=== PATIENT | male | born 1930 | race Caucasian/White ===

== ENCOUNTER 2018-11-13 11:19 | Inpatient (IN) | payer MEDICARE, OTHER ==
[~2018-11-13] VITALS: Ht 188 cm; Wt 98.0 kg
[~2018-11-13 11:19] MED LIST: ASPIRIN325 PO; AUGMENTIN 875875 M1 PO; CYMBALTA30 MG PO; DILAUDID2 M1 PO; FENTANYL PA50 MCG/HR TP; HYTRIN 5 M5 MG/1 CA1 PO; LEVAQUIN 750 M750 MG PO; LOPRESSOR25 PO; LYRICA PO; MEVACOR 20 MG T20 MG PO; NEURONTIN 300300 M1 PO; NEXIUM 40 MG CA40 M1 PO; NORCO 10-325 T1 EACH PO; PREDNISONE 20 M20 M1 PO; RANEXA1000 MG PO; ZOFRAN ODT4 MG PO
[2018-11-13 11:20] VITALS: BP 113/59
[2018-11-13] MEDS ORDERED: FENTANYL PATCH75 MCG TRANSDERM (11:30)
[2018-11-13 11:58] LABS: ANION GAP 8 mmol/L (7-16); BUN 17 mg/dL (7-18); CHLORIDE 102 mmol/L (98-107); CO2 28 mmol/L (21-32); CREATININE 1.4 mg/dL (0.6-1.3); GLUCOSE 125 mg/dL (70-99); POTASSIUM 3.9 mmol/L (3.5-5.1); SODIUM 138 mmol/L (136-145)
[2018-11-13 12:02] LABS: ABSOLUTE BASOPHILS 0.1 thou/uL (0.0-0.2); ABSOLUTE EOSINOPHILS 0.1 thou/uL (0.0-0.7); ABSOLUTE LYMPHOCYTES 1.8 thou/uL (0.8-5.3); ABSOLUTE MONOCYTES 0.6 thou/uL (0.0-1.2); ABSOLUTE NEUTROPHILS 6.1 thou/uL (1.6-8.1); BASOPHILS 1.4 %; EOSINOPHILS 0.7 %; HEMATOCRIT 45.6 % (42.0-52.0); HEMOGLOBIN 15.1 gm/dL (14.0-18.0); LYMPHOCYTES 20.4 %; MCH 31.2 pg (26.0-34.0); MCV 94.3 fL (80.0-100.0); MPV 7.8 fl. (7.2-11.1); NUCLEATED RBCS 0 /100WBC; PLATELET COUNT* 249 thou/uL (150-400); POLYS 70.5 %; RBC 4.84 mil/uL (4.50-6.00); RDW-CV 16.6 % (10.5-14.5); WBC 8.6 thou/uL (4.0-11.0)
[2018-11-13 12:04] LABS: PROTIME 10.3 Seconds (9.20-11.50)
[2018-11-13 12:12] LABS: ALBUMIN 3.4 g/dL (3.4-5.0); ALKALINE PHOSPHATASE 48 U/L (46-116); LIPASE 127 U/L (73-393); NT-PRO BRAIN NAT PEPTIDE 804 pg/mL (<300); SGOT 19 U/L (15-37); SGPT 35 U/L (30-65); TOTAL BILIRUBIN 0.5 mg/dL (<0.1-1.0); TOTAL PROTEIN 6.6 g/dL (6.4-8.2); TROPONIN-I LEVEL <0.06 ng/mL (<0.06)
[2018-11-13 14:30] VITALS: BP 158/66
[2018-11-13 14:45] VITALS: BP 141/71
[2018-11-13] MEDS ORDERED: PROSCAR 5MG TABL5 MG PO (15:41)
[2018-11-13] MEDS ORDERED: ASPIR 8181 MG PO (15:42)
[2018-11-13] MEDS ORDERED: VICODIN HP 10-1 EAC1 PO (15:42)
[2018-11-13] MEDS ORDERED: FLOMAX0.4 MG PO (15:44)
[2018-11-13 16:00] VITALS: BP 119/65
--- NOTE | 2018-11-13 16:23 | 2DMMODE ---
[place] [address] 2 D/M-MODE ECHOCARDIOGRAM Name: ARI SEN Room: [address] IN [facility]#: [id number] Admission: 11/13/18 Attend Phys: Robbin Adames, Discharge: Date of : 34 Date of Service: 11/13/18 1622 Report #: [id number] THIS REPORT FOR: //name// ADDENDUM APPROVED REPORT Study performed: 11/13/2018 13:47:11 EXAM: Comprehensive 2D, Doppler, and color-flow Echocardiogram Patient Location: In-Patient Room #: ER Status: routine BSA: 2.22 HR: 57 bpm BP: 180/66 mmHg Rhythm: NSR Other Information Study Quality: Good Indications Chest Pain 2D Dimensions IVSd: 13.72 (7-11mm) LVOT Diam: 22.99 (18-24mm) LVDd: 49.94 mm PWd: 10.59 (7-11mm) Ascending Ao: 46.68 (22-36mm) LVDs: 33.32 (25-40mm) Aortic Root: 36.67 mm Volumes Left Atrial Volume (Systole) LA ESV Index: 26.80 mL/m2 Aortic Valve AoV Peak Jason.: 1.53 m/s AO Peak Gr.: 9.31 mmHg LVOT Max P.29 mmHg AO Mean Gr.: 4.73 mmHg LVOT Mean P.81 mmHg LVOT Max V: 0.91 m/s AO V2 VTI: 34.59 cm LVOT Mean V: 0.62 m/s MAURILIO (VTI): 2.34 cm2 LVOT V1 VTI: 19.48 cm AI Eaton: 1.42 m/s2 AI PHT: 698.92 ms TDI Medial E' Jason.: 0.05 m/[place] [address] 2 D/M-MODE ECHOCARDIOGRAM Name: YAHAIRAGenaroARI W Room: [address] IN [facility]#: [id number] Admission: 11/13/18 Attend Phys: Robbin Adames, Discharge: Date of : 32 Date of Service: 11/13/18 1622 Report #: [id number] Lateral E' Jason.: 0.08 m/s Pulmonary Valve PV Peak Jason.: 0.97 m/s PV Peak Gr.: 3.75 mmHg Tricuspid Valve RAP Estimate: 5.00 mmHg TR Peak Gr.: 38.75 mmHg RVSP: 43.00 mmHg PA Pressure: 43.00 mmHg Left Ventricle The left ventricle is normal size. There is normal LV segmental wall motion. Mild septal hypertrophy is present. Left ventricular systolic function is normal. LVEF is 55-60%. Grade I - abnormal relaxation pattern. Right Ventricle The right ventricle is normal size. The right ventricular systolic function is normal. Atria Left atrium is mildly dilated. The right atrium size is normal. Aortic Valve Mild aortic valve sclerosis. Moderate aortic regurgitation. There is no aortic valvular stenosis. Mitral Valve The mitral valve is normal in structure. Trace mitral regurgitation. No evidence of mitral valve stenosis. Tricuspid Valve The tricuspid valve is normal in structure. Mild tricuspid regurgitation. Moderate pulmonary hypertension. Pulmonic Valve The pulmonary valve is normal in structure. There is no pulmonic valvular regurgitation. Great Vessels Aortic root is moderately dilated. (4.67 cm.) IVC is not well visualized. Pericardium There is no [place] [address] 2 D/M-MODE ECHOCARDIOGRAM Name: ARI SEN Room: [address] IN [facility]#: [id number] Admission: 11/13/18 Attend Phys: Robbin Adames, Discharge: Date of : 32 Date of Service: 11/13/18 1622 Report #: [id number] <Conclusion> The left ventricle is normal size. Mild septal hypertrophy is present. Left ventricular systolic function is normal. LVEF is 55-60%. Grade I - abnormal relaxation pattern. Left atrium is mildly dilated. Moderate aortic regurgitation. Mild aortic valve sclerosis. There is no aortic valvular stenosis. Trace mitral regurgitation. Mild tricuspid regurgitation. Moderate pulmonary hypertension. Aortic root is moderately dilated. (4.67 cm.) <ELECTRONICALLY SIGNED> By: Hari Antunez MD, FACC 11/13/181621 21 21 Hari Antunez MD, FACC /INF
--- NOTE | 2018-11-13 16:32 | EKG ---
[place] [address] ELECTROCARDIOGRAM REPORT Name: ARI SEN Room: [address] ADM IN .R.#: [id number] Admission: 11/13/18 Attend Phys: Robbin Adames MD Discharge: Date of : 32 Report #: [id number] THIS REPORT FOR: //name// [facility] ED Test Date: 2018-11-13 Test Time: 11:23:46 Pat Name: ARI SEN Department: Room: [facility] Gender: M Lace Machine Operator: KATRIN : 1930 Requested By: Maia Ramon Order Number: [id number] MD: Hari Antunez Measurements Intervals [place] Rate: 65 P: 47 MT: 193 QRS: -18 QRSD: 103 T: 38 QT: 375 QTc: 390 Interpretive Statements Sinus rhythm Supraventricular bigeminy Borderline left axis deviation Low voltage, precordial leads Abnormal R-wave progression, late transition Borderline T wave abnormalities Compared to ECG 12/28/2015 15:22:46 Atrial premature complex(es) now present Low QRS voltage now present T-wave abnormality now present Sinus bradycardia no longer present Electronically Signed On 11-13-2018 16:32:38 SOLUTION MIXER by Hari Antunez [email or web address] <ELECTRONICALLY SIGNED> By: Hari Antunez MD, [facility] 11/13/18 1632 1123 1123 Hari Antunez MD, [facility] /EPI
[2018-11-13 20:00] VITALS: BP 122/62
[2018-11-14] VITALS (18 sets, daily range): BP systolic 108–158; BP diastolic 36–80
[2018-11-14 05:11] LABS: HEMATOCRIT 42.4 % (42.0-52.0); MCH 31.2 pg (26.0-34.0); MCV 94.5 fL (80.0-100.0); MPV 7.7 fl. (7.2-11.1); RBC 4.48 mil/uL (4.50-6.00); RDW-CV 16.8 % (10.5-14.5); WBC 6.5 thou/uL (4.0-11.0)
[2018-11-14 05:26] LABS: ANION GAP 5 mmol/L (7-16); BUN 13 mg/dL (7-18); CALCIUM 8.6 mg/dL (8.5-10.1); CHLORIDE 105 mmol/L (98-107); CHOLESTEROL 197 mg/dL (<200); CO2 31 mmol/L (21-32); CREATININE 1.1 mg/dL (0.6-1.3); GLUCOSE 95 mg/dL (70-99); HDL CHOLESTEROL 51 mg/dL (>40); LDL CHOLESTEROL 134 mg/dL (<100); MAGNESIUM 2.2 mg/dL (1.8-2.4); POTASSIUM 4.5 mmol/L (3.5-5.1); SODIUM 141 mmol/L (136-145); TC:HDL 3.9 Ratio (Not establshd); TRIGLYCERIDE 63 mg/dL (<150); VLDL 13 mg/dL (<40)
[2018-11-14 05:33] LABS: SERUM ASSESSMENT Clear
--- NOTE | 2018-11-14 15:37 | EKG ---
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: : 1930 Requested By: Mathieu Cool Order Number: [id number] Reading MD: Mathieu Cool Measurements Intervals [place] Rate: 78 P: 52 VT: 206 QRS: -37 QRSD: 100 T: 53 QT: 362 QTc: 413 Interpretive Statements Sinus rhythm Supraventricular bigeminy Left axis deviation Low voltage, precordial leads Abnormal R-wave progression, late transition Compared to ECG 11/13/2018 11:23:46 T-wave abnormality no longer present Electronically Signed On 11-14-2018 15:37:31 SNOWBOARDING INSTRUCTOR by Mathieu Cool [email or web address] <ELECTRONICALLY SIGNED> By: Mathieu Cool MD, FAC 11/14/18 1537 1345 1345 Mathieu Cool MD, [facility] /EPI
--- NOTE | 2018-11-14 16:37 | CARD ---
[facility] [address] [place] [address] CARDIAC CATH REPORT Name: ARI SEN Room: [address] IN [facility]#: [id number] Admission: 11/13/18 Attend Phys: Robbin Adames MD Discharge: Date of : 32 Report #: [id number] THIS REPORT FOR: //name// APPROVED REPORT Study performed: 11/14/2018 10:17:03 Patient Details Patient Status: In-Patient Room #: 201 The patient is a 88 year-old male Event Personnel Mathieu Cool Mine Analyst, Rosalina Bruce RN RN, Karen Gray RTR Scrub, Bertha Schmitz Monitor Procedures Performed Art Access - R radial artery , [facility] w[facility]o [facility] [id number] [facility] Left Heart Cath w/or w/o Coronaries [id number] [facility] [address] w/wo Plasty Single DIAG [id number] [address] w/wo Plasty Single LAD [id number] Indication Chest pain Risk Factors Dysplipidemia Previous Procedures/Diagnoses Previous PCI Admission/Lab Medications/Medications given during procedure Glycoprotein IllbIlla Inhibitors, Heparin Unfract. Procedure Narrative The patient was brought electively to the Cardiac Catheterization Laboratory and was prepped and draped in a sterile manner. The right wrist was infiltrated with 1% Lidocaine subcutaneous anesthesia. A Slender Glidesheath sheath was inserted into the right radial artery. Coronary angiography was performed using coronary diagnostic catheters. The right coronary system was accessed and visualized with a 6fr JR 4 catheter. The left coronary system was accessed and visualized with a 6fr JL 4 catheter. The left ventricle was accessed and visualized with a 6fr Pigtail catheter. Left ventricular/Aortic Valve gradient assessed via catheter pullback[place] [address] CARDIAC CATH REPORT Name: ARI SEN Room: [address]#: [id number] Admission: 11/13/18 Attend Phys: Robbin Adames MD Discharge: Date of : 32 Report #: [id number] was performed in ABRAMS projection. Closure device was deployed with a 6 Fr Vasc-Band Lng 27cm. The patient tolerated the procedure well and there were no complications associated with the procedure. There was no hematoma. Intraoperative Conscious Sedation Sedation start time: 11:05 Case end Time: 12:22 Fentanyl 100 mcg Versed 4 mg Fluoro Time: 15.2 minutes Dose: DAP 56733 cGycm2 2373.1 mGy Contrast Type and Amount: Omnipaque 460 ml Coronary Angiography The patient's coronary anatomy is right dominant. Diagnostic Cath Left Main 30% mid stenosis LAD stent noted that started in the proximal lad and extended beyond the first diagonal branch with no restenosis. 30% stenosis noted in mid lad and 90% stenosis of apical lad Diagonal 1 proximal stent noted with 80% mid restenosis Circumflex mid stent noted with 30% mid restenosis. L SHAUN 80% proximal stenosis noted Right Coronary 40% proximal and 30% mid stenosis noted Left Ventriculography The left ventricle is normal in size with normal contractility. The left ventricular ejection fraction is estimated to be 50-55%. Left ventricular wall motion abnormalities are not present. There is no mitral insufficiency. Hemodynamics The aortic pressure is 151/55 mmHg with a mean of mmHg. The left ventricular pressure is 169/20 mmHg with a mean of mmHg. The left ventricular end diastolic pressure is 24 mmHg. There was no gradient across the aortic valve upon pullback. Pullback from the left ventricle to the aorta revealed no gradient across the aortic valve. PCI Technique Lesion Anticoagulation was achieved with Heparin. bolus of IV aggrastat given Percutaneous coronary intervention was performed on the first diagnonal branch segment. The lesion [place] [address] CARDIAC CATH REPORT Name: ARI SEN Virgen Room: [address]#: [id number] Admission: 11/13/18 Attend Phys: Robbin Adames MD Discharge: Date of : 32 Report #: [id number] was 80% with EDMOND 3 flow. A 6FR XB 4.5 100CM Guide Catheter was used to engage the LCA ostium. A BMW 190cm Interventional Guidewire was used to cross the lesion. BALLOON DILATION A Balloon catheter Trek RX 2.5 X 8 was inserted and inflated up to 8.00atm for 16seconds. Repeat angiography revealed the following post-dilatation results: 50% stenosis. Additional Inflation: 8.00atm for 7seconds. Additional Inflation: 8.00atm for 5seconds. STENT DEPLOYMENT A drug-eluting stent [place] RX Stent 2.5X15mm was inserted and inflated up to 10.00atm for 7seconds. Repeat angiography revealed the following post-stent deployment results: 0% stenosis. Additional Inflation: 10.00atm for 10seconds. Final angiography reveals 0 % stenosis with EDMOND 3 flow. PCI Technique Lesion 2 Percutaneous Coronary Intervention was performed on the first left posterolateral branch segment. Percutaneous coronary intervention was performed on the first left posterolateral branch segment. The lesion stenosis prior to intervention was 80% with EDMOND 3 flow. A 6FR XB 4.5 100CM Guide Catheter was used to engage the lm ostium. A BMW 190cm Interventional Guidewire was used to cross the lesion. Balloon Dilation A Balloon catheter Trek RX 2.5 X 8 was inserted and inflated up to 14.00atm for 15seconds. Repeat angiography revealed the following post-dilatation results: 30% stenosis. Attempted using xb4.0 guide catheter but it offered minimal support, so changed to a xb4.5. Stent Deployment A drug-eluting stent [place] RX Stent 3.0X22mm was inserted and inflated up to 10.00atm for 14seconds. Repeat angiography revealed the following post-stent deployment results: 0% stenosis. Additional Inflation: 12.00atm for 13seconds. Final angiography reveals 0 % stenosis with EDMOND 3 flow. Conclusion 1. no significant restenosis of stents in the lad and mid circumflex 2. 80% restenosis of stent in the first diagonal branch and 80% [address] [address] CARDIAC CATH REPORT Name: ARI SEN Room: [address] IN M.R.#: [id number] Admission: 11/13/18 Attend Phys: Robbin Adames MD Discharge: Date of : 32 Report #: [id number] stenosis of posterolateral branch of the circumflex 3. normal LV function 4. successful placement of drug eluting stents in the diagonal artery and posterolateral branch Recommendations Cardiac Rehabilitation Referral Aggressive Medical Therapy Medications Administered Clopidogrel <ELECTRONICALLY SIGNED> By: Mathieu Cool MD, FACC 11/14/18 1637 1637 1637Mathieu Cool MD, [facility] /INF
[2018-11-15] VITALS: BP 144/68
[2018-11-15 04:00] VITALS: BP 160/63
[2018-11-15 08:00] VITALS: BP 157/81
[2018-11-15] MEDS ORDERED: PLAVIX 75 MG TA75 M1 PO (09:09)
[2018-11-15] MEDS ORDERED: LIPITOR 20 MG T20 M1 PO (09:09)
[2018-11-15] MEDS ORDERED: LOPRESSOR25 PO (09:09)
[2018-11-15 11:15] LABS: HEMATOCRIT 43.9 % (42.0-52.0); HEMOGLOBIN 14.5 gm/dL (14.0-18.0); MCV 93.8 fL (80.0-100.0); MPV 7.5 fl. (7.2-11.1); RBC 4.67 mil/uL (4.50-6.00); RDW-CV 16.8 % (10.5-14.5); WBC 7.7 thou/uL (4.0-11.0)
[2018-11-15 11:29] LABS: CREATININE 1.1 mg/dL (0.6-1.3); POTASSIUM 3.7 mmol/L (3.5-5.1)
[2018-11-15 11:55] LABS: TROPONIN-I LEVEL 1.11 ng/mL (<0.06)
[2018-11-15 12:15] VITALS: BP 154/61
--- NOTE | 2018-11-15 13:13 | EKG ---
[place] [address] ELECTROCARDIOGRAM REPORT Name: ARI SEN Room: [address] ADM IN .R.#: [id number] Admission: 11/13/18 Attend Phys: Robbin Adames MD Discharge: Date of : 32 Report #: [id number] THIS REPORT FOR: //name// [facility] Test Date: 2018-11-15 Test Time: 07:59:46 Pat Name: ARI SEN Department: Room: [address] Gender: M Inseamer: : 1930 Requested By: Mathieu Cool Order Number: [id number] Reading MD: Mathieu Cool Measurements Intervals [place] Rate: 79 P: 44 WI: 192 QRS: -10 QRSD: 104 T: 51 QT: 378 QTc: 434 Interpretive Statements Sinus rhythm Atrial premature complexes Abnormal R-wave progression, late transition Compared to ECG 11/14/2018 13:45:23 Left-axis deviation no longer present Electronically Signed On 11-15-2018 13:13:38 MARKETING RESEARCH COORDINATOR by Mathieu Cool [email or web address] <ELECTRONICALLY SIGNED> By: Mathieu Cool MD, [facility] 11/15/18 1313 0759 0759 Mathieu Cool MD, [facility] /EPI
[2018-11-15 13:14] VITALS: BP 122/59
[2018-11-15 13:58] VITALS: BP 122/59
--- NOTE | 2018-11-20 14:11 | CON ---
[address] [address] CONSULTATION Name: ARI SEN Room: [address] IN .R.#: [id number] Admission: 11/13/18 Attend Phys: Robbin Adames MD Discharge: 11/15/18 Date of : 32 Report #: [id number] THIS REPORT FOR: //name// CC: Mathieu Mitchell MD DATE OF SERVICE: 11/13/2018 INDICATION: Unstable angina. HISTORY OF PRESENT ILLNESS: The patient is an 88-year-old gentleman who has had percutaneous coronary intervention on 3 separate occasions in the past with a total of 4 stents placed. His most recent catheterization revealed a "small vessel" on the bottom part of his heart that was not amenable to intervention. He has been treated for symptoms of stable angina for the last several years. He states over the last month or so, he has had increasing angina. This morning while at breakfast, he had the onset of midsternal chest pain radiating to both arms and neck with associated shortness of breath and diaphoresis. He took at least 2 nitroglycerins and then was in the process of trying to get to his bed upstairs when he had a syncopal episode, presumably due to orthostasis. He did regain consciousness after several minutes. He was transferred to the Emergency Room for further evaluation and admitted with unstable angina. Presently, he is pain free. His initial cardiac enzymes were unremarkable. EKG showed sinus rhythm with PACs in a pattern of bigeminy. There were no acute ST or T-wave abnormalities noted. PAST MEDICAL HISTORY: 1. Coronary artery disease with no documented history of myocardial infarction. He has had intervention as outlined above. 2. Possible mild hypertension. 3. Probable dyslipidemia. 4. Spinal stenosis with spinal stimulator placed in 2011. 5. History of peptic ulcer disease with gastrectomy and vagotomy in 1971, tonsillectomy remotely, prostate cancer in 2006 with radiation treatment at that time. 6. Sphenoid sinuses thrombosis with infection, treated here many years ago. FAMILY HISTORY: Noncontributory. The patient's father had rheumatic heart disease. He lived to be in his 80s. SOCIAL HISTORY: The patient is . He does not smoke. He does not drink alcohol. He quit smoking over [place] [address] CONSULTATION Name: ARI SEN Room: [address]#: [id number] Admission: 11/13/18 Attend Phys: Robbin Adames MD Discharge: 11/15/18 Date of : 32 Report #: [id number] ALLERGIES: POSSIBLE GLUTEN ALLERGY. HOME MEDICATIONS: Fentanyl patch 75 mcg q. 3 days, gabapentin 300 mg t.i.d., hydrocodone/acetaminophen 10/325 q. 6 hours p.r.n., aspirin 81 mg daily, Proscar 5 mg daily, gabapentin 300 mg t.i.d., Flomax 0.4 mg daily. REVIEW OF SYSTEMS: A 14-point review of systems is positive for palpitations and chest discomfort. He had syncope today. He reports minimal lower extremity swelling on occasion. He reports remote history of ulcers as outlined above. He reports prostate cancer status post x-ray therapy and suppressive therapy. He reports a history of sinus venosus, blood clot and infection. He reports gluten allergies. 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 He reports glasses without acute visual change. He has decreased hearing with bilateral hearing aids. Otherwise, 14-point review of systems was unremarkable. PHYSICAL EXAMINATION: VITAL SIGNS: Stable. Blood pressure 141/71, pulse 57. GENERAL: This is a pleasant gentleman, who is in no distress. Mood and affect appropriate. HEENT: The patient is wearing glasses. Extraocular muscles intact. Bilateral hearing aids in place. Mucous membranes moist. NECK: Shows no jugular venous distention. I do not appreciate a bruit. CHEST: Reveals clear lung brown without wheezes or rales. CARDIOVASCULAR: Reveals a regular rhythm without gallop or murmur. ABDOMEN: Reveals normal bowel sounds. The abdomen is soft, nontender. EXTREMITIES: Shows no edema. Peripheral pulses 2+ in the left lower extremity, 1+ in right lower extremity. IMPRESSION AND RECOMMENDATIONS: 1. Unstable angina with progressive symptoms. We will proceed with left heart catheterization and coronary angiography. Further intervention will be pending the results of that study. 2. Possible dyslipidemia. We will check fasting lipid profile at this time. 3. Hypertension. We will continue home medications and consider the addition of antihypertensive medications as needed depending on heart rate and blood pressure. 4. Coronary artery disease. Continue daily aspirin. <ELECTRONICALLY SIGNED> By: Hari Antunez MD, FACC 11/20/18 1411 1549 2242Micyancy Antunez MD, FACC /nt
== END 2018-11-15 14:00 | disposition home or self-care (01) | DRG 246 ==
LOC: M.ERS 11:19 → M.TBA-ER 13:08 → M.2W 13:08
PROVIDERS: Internal Medicine Cardiovascular Disease; Personal Emergency Response Attendant; ADMIT Internal Medicine
DX: T82.855A Stenosis of coronary artery stent, initial encounter (principal); I50.33 Acute on chronic diastolic (congestive) heart failure; I25.110 Atherosclerotic heart disease of native coronary artery with unstable angina pectoris; I43 Cardiomyopathy in diseases classified elsewhere; I27.20 Pulmonary hypertension, unspecified; Y83.8 Other surgical procedures as the cause of abnormal reaction of the patient, or of later complication, without mention of misadventure at the time of the procedure; I13.10 Hypertensive heart and chronic kidney disease without heart failure, with stage 1 through stage 4 chronic kidney disease, or unspecified chronic kidney disease; M48.00 Spinal stenosis, site unspecified; N18.3 Chronic kidney disease, stage 3 (moderate); G89.29 Other chronic pain; K27.9 Peptic ulcer, site unspecified, unspecified as acute or chronic, without hemorrhage or perforation; Z95.5 Presence of coronary angioplasty implant and graft; Z90.3 Acquired absence of stomach [part of]; Z85.46 Personal history of malignant neoplasm of prostate; Y92.89 Other specified places as the place of occurrence of the external cause; Z87.891 Personal history of nicotine dependence; Z79.891 Long term (current) use of opiate analgesic; R55 Syncope and collapse

== ENCOUNTER 2019-06-04 06:52 | Inpatient (IN) | payer MEDICARE, OTHER ==
[2019-05-30 09:17] LABS: HEMATOCRIT 40.8 % (42.0-52.0); HEMOGLOBIN 13.3 gm/dL (14.0-18.0); MCH 30.9 pg (26.0-34.0); MCHC 32.5 g/dL (28.0-37.0); MCV 95.1 fL (80.0-100.0); MPV 7.2 fl. (7.2-11.1); RBC 4.29 mil/uL (4.50-6.00); RDW-CV 14.9 % (10.5-14.5); WBC 5.5 thou/uL (4.0-11.0)
[2019-05-30 09:17] LABS: URINE BILIRUBIN NEGATIVE (Negative); URINE BLOOD NEGATIVE (Negative); URINE CLARITY CLEAR; URINE COLOR YELLOW; URINE GLUCOSE-RANDOM NEGATIVE (Negative); URINE KETONES NEGATIVE (Negative); URINE LEUKOCYTES-REFLEX NEGATIVE (Negative); URINE NITRITE-REFLEX NEGATIVE (Negative); URINE PROTEIN NEGATIVE (Negative); URINE UROBILINOGEN 0.2 E.U./dl (0.2-1.0)
[2019-05-30 09:22] LABS: PROTIME 10.4 Seconds (9.20-11.50)
[2019-05-30 09:31] LABS: ALBUMIN 2.9 g/dL (3.4-5.0); CALCIUM 8.5 mg/dL (8.5-10.1); CREATININE 1.3 mg/dL (0.6-1.3); POTASSIUM 4.4 mmol/L (3.5-5.1); TOTAL BILIRUBIN 0.4 mg/dL (<0.1-1.0); TOTAL PROTEIN 5.9 g/dL (6.4-8.2)
--- NOTE | 2019-05-31 11:07 | EKG ---
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: : 1930 Requested By: Donnell Stephen Order Number: [id number] Reading MD: Mathieu Cool Measurements Intervals [place] Rate: 43 P: -24 MI: 269 QRS: -18 QRSD: 107 T: 19 QT: 466 QTc: 395 Interpretive Statements Sinus bradycardia Prolonged MI interval Borderline left axis deviation Compared to ECG 11/15/2018 07:59:46 First degree AV block now present Sinus rhythm no longer present Atrial premature complex(es) no longer present Electronically Signed On 05-31-2019 11:07:27 CDT by Mathieu Cool [email or web address] <ELECTRONICALLY SIGNED> By: Mathieu Cool MD, [facility] 05/31/19 1107 0945 0945 Mathieu Cool MD, [facility] /EPI
[~2019-06-04] VITALS: Ht 188 cm; Wt 96.6 kg
--- NOTE | ~2019-06-04 | OP ---
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 PROCEDURE: Right reverse total shoulder arthroplasty. SURGEON: Donnell Stephen II, DO. BIOMETRICS CONSULTANT: None. ESTIMATED BLOOD LOSS: 50 mL. ANESTHESIA: General endotracheal. ANTIBIOTICS: Ancef preoperatively. DRAINS: None. COMPLICATIONS: None. CONDITION OF THE PATIENT: Stable to recovery room. IMPLANTS USED: A Belva reverse total shoulder arthroplasty. Sizes listed in the operative record and progress note. BRIEF HISTORY: The patient is seen in the preoperative area. Preop H and P was performed. Site was marked, questions were answered. Risks and benefits were discussed with the patient in detail about surgery. The patient wished to proceed, assuming all risks. DESCRIPTION OF PROCEDURE: The patient was taken to the operative suite and placed supine on the OR table, given appropriate anesthesia. The patient was placed in modified beach chair position. All bony prominences well padded and the right shoulder was sterilely prepped and draped. Surgery began by a deltopectoral incision over the right shoulder in the anterior aspect, carried down to the subcutaneous tissues. The deltopectoral interval was explored and the cephalic vein was retracted laterally with the deltoid exposure of the [address] [address] OPERATIVE REPORT Name: ARI SEN Room: [address] IN [facility].#: [id number] Admission: 06/04/19 Attend Phys: Nikki Pena Discharge: Date of : 32 Report #: [id number] that was performed by ____ the supraspinatus remaining tendon structure off the superior aspect of the humerus and the subscapularis off the anterior aspect. The shoulder was then brought out through the anterior portion of the incision. Starting reamer was then utilized up to the appropriate size 13, which was left in place. The alignment guide was then applied to make the head cut. This was taken through appropriate retroversion and pinned in appropriate position. Appropriate cuts were then made and the head was removed. This was then broached in sequential fashion up to appropriate size and this was then left in place. The protective hubcap was then placed over the top of the broach. The shoulder was then reduced back into socket and retracted appropriately with the glenoid retractors. Excess labrum was then removed from around the glenoid and excess spurs and osteophytes were removed from the inferior aspect. The alignment pin was then applied and pinned in appropriate fashion and the center inferior portion of the glenoid was then reamed in sequential fashion up to appropriate depth with punctate bleeding noted. Excess bone spurs were removed from around the anterior aspect. The glenoid baseplate was then secured and depth gauge was utilized to determine screw length and a central locking screw. This was then applied and the plate was then locked into position. Four locking screws were then applied through the remaining portion of the glenoid baseplate in appropriate fashion with appropriate depth. The glenosphere was then selected with an eccentric +2 offset. This was then malleted into position. Attention was then turned back to the humerus. Trial was then performed up to appropriate size. This was then taken through range of motion with excellent forward flexion, abduction as well as internal rotation without evidence of dislocation and excellent stability. These trials were removed. The final were then brought together on the back table and malleted into position within the shoulder. The shoulder was then once again reduced and showed excellent stability and excellent flexion and extension of the shoulder with full range of motion. No evidence of dislocation was seen. Irrigation was then performed. The deltopectoral incision was then reapproximated utilizing #1 Vicryl in [id number] fashion. Skin was closed with 2-0 Vicryl and running Monocryl stitch. Dermabond and sterile dressing as well as UltraSling were applied. The patient transported to recovery room in stable condition. Counts were correct throughout the procedure. By: [id number] Stephen II, DO /nt
[~2019-06-04 06:52] MED LIST changes: +ASPIR 8181 MG PO; +FENTANYL PATCH75 MCG TRANSDERM; +FLOMAX0.4 MG PO; +LIPITOR 20 MG T20 M1 PO; +NORVASC5 MG PO; +PLAVIX 75 MG TA75 M1 PO; +PROPAFENONE 15150 MG PO; +PROSCAR 5MG TABL5 MG PO; +PROTONIX40 M1 PO; +VICODIN HP 10-1 EAC1 PO
[2019-06-04 08:35] VITALS: BP 144/63
[2019-06-04] MEDS ORDERED: XARELTO20 MG PO (08:39)
[2019-06-04 12:11] LABS: HEMATOCRIT 39.2 % (42.0-52.0); HEMOGLOBIN 12.9 gm/dL (14.0-18.0); MCH 31.5 pg (26.0-34.0); MCV 95.5 fL (80.0-100.0); MPV 7.5 fl. (7.2-11.1); RBC 4.1 mil/uL (4.50-6.00); RDW-CV 14.7 % (10.5-14.5); WBC 7.2 thou/uL (4.0-11.0)
[2019-06-04 12:22] LABS: CALCIUM 8.6 mg/dL (8.5-10.1); CREATININE 1.1 mg/dL (0.6-1.3); POTASSIUM 4.7 mmol/L (3.5-5.1)
[2019-06-04 12:28] LABS: ALBUMIN 2.9 g/dL (3.4-5.0); TOTAL BILIRUBIN 0.3 mg/dL (<0.1-1.0); TOTAL PROTEIN 5.6 g/dL (6.4-8.2)
[2019-06-04 20:00] VITALS: BP 106/50
[2019-06-05] VITALS: BP 115/58
[2019-06-05 04:00] VITALS: BP 115/58; BP 121/57
--- NOTE | 2019-06-05 06:16 | NUR ---
PATIENT SLEPT PART OF THE NIGHT. PATIENT WAS GIVEN PAIN MEDICINE NEEDED. IMMOBILZER REMAINS TO RIGHT SHOULDER WITH POLAR PACK IN PLACE. PATIENT WAS FRUSTRATED OVER NIGHT ABOUT BEING ON THE CARDIAC FLOOR AND NOT ON JOINT AND SPINE. EXPLAINED TO PATIENT THAT THE DOCTORS WANTED TO MONITOR HIS HEART. PATIENT WAS ALSO CONCERNED THAT THE IMMOBLIZER WAS NOT ON CORRECTLY A JOINT AND SPINE NURSE CAME UP AND HELP THIS NURSE ADJUST IT SOME. IV WENT BAD THIS MORNING. PATIENT DIFFUCULT STICK. DIGITAL MEDIA ANALYST WAS NOTIFIED THAT PATIENT NEEDED AN IV STARTED. WILL CONTINUE TO MONITOR.
[2019-06-05 08:41] VITALS: BP 137/63
[2019-06-05 12:24] VITALS: BP 137/63
[2019-06-05] MEDS ORDERED: PERCOCET PO (12:35)
== END 2019-06-05 15:06 | disposition home or self-care (01) | DRG 483 ==
LOC: M.2W 06:52 → M.TBA 06:52 → M.PRE 09:00 → M.2W 14:34 → M.PRE 15:25 → M.2W 06-05 15:06
PROVIDERS: Internal Medicine; Orthopaedic Surgery; ADMIT Internal Medicine
PROC: 0RRJ00Z Replacement of Right Shoulder Joint with Reverse Ball and Socket Synthetic Substitute, Open Approach (ICD-10-PCS; principal; 2019-06-04)
PROC: 3E0T3BZ Introduction of Anesthetic Agent into Peripheral Nerves and Plexi, Percutaneous Approach (ICD-10-PCS; principal; 2019-06-04)
DX: M19.011 Primary osteoarthritis, right shoulder (principal); I48.0 Paroxysmal atrial fibrillation; I10 Essential (primary) hypertension; K21.9 Gastro-esophageal reflux disease without esophagitis; I25.10 Atherosclerotic heart disease of native coronary artery without angina pectoris; M75.101 Unspecified rotator cuff tear or rupture of right shoulder, not specified as traumatic; G89.29 Other chronic pain; E78.5 Hyperlipidemia, unspecified; Z95.5 Presence of coronary angioplasty implant and graft; Z79.82 Long term (current) use of aspirin; Z79.1 Long term (current) use of non-steroidal anti-inflammatories (NSAID); Z79.899 Other long term (current) drug therapy; Z85.46 Personal history of malignant neoplasm of prostate

== ENCOUNTER 2019-11-14 23:13 | Inpatient (IN) | payer MEDICARE, OTHER ==
[~2019-11-14] VITALS: Ht 182.9 cm; Wt 91.9 kg
[~2019-11-14 23:13] MED LIST changes: +METOPROLOL TART25 MG PO; +PERCOCET PO; +XARELTO20 MG PO
[2019-11-14 23:14] VITALS: BP 161/66
[2019-11-14 23:34] LABS: ABSOLUTE MONOCYTES 0.5 thou/uL (0.0-1.2); HEMOGLOBIN 14.7 gm/dL (14.0-18.0); MONOCYTES 6.5 %; PLATELET COUNT* 233 thou/uL (150-400)
[2019-11-14 23:37] LABS: ABSOLUTE BASOPHILS 0.1 thou/uL (0.0-0.2); ABSOLUTE EOSINOPHILS 0.1 thou/uL (0.0-0.7); ABSOLUTE LYMPHOCYTES 1.2 thou/uL (0.8-5.3); ABSOLUTE NEUTROPHILS 5.4 thou/uL (1.6-8.1); BASOPHILS 1.3 %; EOSINOPHILS 1.3 %; HEMATOCRIT 43.7 % (42.0-52.0); LYMPHOCYTES 16.6 %; MCH 30.1 pg (26.0-34.0); MCHC 33.6 g/dL (28.0-37.0); MCV 89.7 fL (80.0-100.0); MPV 7.9 fl. (7.2-11.1); NUCLEATED RBCS 0 /100WBC; POLYS 74.3 %; RBC 4.87 mil/uL (4.50-6.00); RDW-CV 15.7 % (10.5-14.5); WBC 7.3 thou/uL (4.0-11.0)
[2019-11-14 23:41] LABS: CALCIUM 8.1 mg/dL (8.5-10.1); CREATININE 1.3 mg/dL (0.6-1.3); POTASSIUM 3.4 mmol/L (3.5-5.1)
[2019-11-14 23:43] LABS: APTT 25.8 Seconds (25.0-31.3); PROTIME 10.3 Seconds (9.20-11.50)
[2019-11-14 23:45] LABS: ALBUMIN 3.2 g/dL (3.4-5.0); TOTAL BILIRUBIN 0.7 mg/dL (<0.1-1.0); TOTAL PROTEIN 6.5 g/dL (6.4-8.2)
[2019-11-14] MEDS ORDERED: VITAMIN D325 MC5 PO (23:59)
[2019-11-14] MEDS ORDERED: GRAPE SEED50 MG PO (23:59)
[2019-11-14] MEDS ORDERED: NIACIN 100MG T100 M1 PO (23:59)
[2019-11-15] VITALS (7 sets, daily range): BP systolic 127–150; BP diastolic 54–68
[2019-11-15] MEDS ORDERED: [UNRECOGNIZED DRUG - OTHER] PO
[2019-11-15] MEDS ORDERED: POTASSIUM20 PO (00:01)
[2019-11-15] MEDS ORDERED: 8 HOUR C500 MG PO (00:02)
--- NOTE | 2019-11-15 09:45 | EKG ---
[place] [address] ELECTROCARDIOGRAM REPORT Name: ARI SEN Room: [place] [address] ADM IN [facility].#: [id number] Admission: 11/15/19 Attend Phys: Dmitriy Archibald Discharge: Date of : 34 Date of Service: 11/14/19 2318 Report #: [id number] THIS REPORT FOR: //name// [facility] ED Test Date: 2019-11-14 Test Time: 23:18:57 Pat Name: ARI SEN Department: Room: [facility] Gender: M [employer] Party Manager: [place] : 1930 Requested By: Juno Morrison Order Number: [id number] MD: Arsh Haley Measurements Intervals [place] Rate: 43 P: -31 MT: 186 QRS: -37 QRSD: 118 T: 13 QT: 510 QTc: 432 Interpretive Statements Sinus bradycardia with pac's Nonspecific IVCD with LAD Compared to ECG 05/30/2019 09:45:58 Intraventricular conduction delay now present First degree AV block no longer present Electronically Signed On 11-15-2019 9:45:04 BROKERAGE CLERK by Arsh Haley [email or web address] <ELECTRONICALLY SIGNED> By: Arsh Haley MD, FACC 11/15/19 0945 2318 2318 Arsh Haley MD, FACC /EPI
--- NOTE | 2019-11-15 19:44 | NUR ---
PT ADMITTED TO ROOM 206 WITH AFIB,SYNCOPE. PT REPORTS THAT HE REMEMBERS BECOMIN DIZZY AND IT HAS NEVER HAPPENED BEFORE. PT HAS REFUSED CARDIOLOY CONSULT. PT EDUATED ON POSSIBILITIES OF DIAGNOSIS CHANGES. PT APPEARS MORE RECEPTIVE. PT IS AOX4 BUT ADMITS TO SHORT TERM MEMORY LOSS. STATES THAT HIS HAS BEEN SICK LATELY AND SHE ASSISTS A LOT WITH HIS CARE. PT VSS ON RA. MNONITOR SHOWS AFIB WITH HR IN 40'S. PT STATES THIS IS NORMAL AND HE FEELS FINE OTHERWISE. PT REPORTS SOME INDIGIESTION, PAIN TO RIGHT SHOULDER AND CHRONIC PAIN TO BACK. PT STATES THAT HE IS DUE TO CHANGE PAIN PATCH TODAY. PT EDUCATED TO PLAN OF CARE, TREATMENTS AND FALL PRECAUTIONS. CALL LIGHT WITHIN REACH
[2019-11-16 00:08] VITALS: BP 128/60
[2019-11-16 00:10] VITALS: BP 128/60
--- NOTE | 2019-11-16 04:26 | NUR ---
ASSUMED CARE OF PT AT 1900. PT IS ALERT AND ORIENTED. VSS. PERRLA. NO COMPLAINTS OF PAIN. PTS HEART RATE HAS BEEN IN THE 40'S. HE IS SINUS FIONA WITH A 1ST DEGREE BLOCK. PT IS SLEEPING COMFORTABLY IN BED. RESPIRATIONS ARE EVEN AND NONLABORED. WILL CONTINUE TO MONITOR PT.
[2019-11-16 04:32] VITALS: BP 118/59
[2019-11-16 08:00] VITALS: BP 124/79
[2019-11-16 10:09] VITALS: BP 118/59
[2019-11-16] MEDS ORDERED: KEFLEX500 M1 PO (10:09)
== END 2019-11-16 10:50 | disposition home or self-care (01) | DRG 309 ==
LOC: M.ERS 23:13 → M.TBA-ER 11-15 00:33 → M.2W 11-15 15:25
PROVIDERS: Emergency Medicine Emergency Medical Services; ADMIT Internal Medicine
DX: I48.0 Paroxysmal atrial fibrillation (principal); D68.69 Other thrombophilia; N17.9 Acute kidney failure, unspecified; I25.118 Atherosclerotic heart disease of native coronary artery with other forms of angina pectoris; M19.011 Primary osteoarthritis, right shoulder; N18.9 Chronic kidney disease, unspecified; I13.10 Hypertensive heart and chronic kidney disease without heart failure, with stage 1 through stage 4 chronic kidney disease, or unspecified chronic kidney disease; E78.5 Hyperlipidemia, unspecified; K21.9 Gastro-esophageal reflux disease without esophagitis; E86.0 Dehydration; Z90.3 Acquired absence of stomach [part of]; Z85.46 Personal history of malignant neoplasm of prostate; Z95.5 Presence of coronary angioplasty implant and graft; Z79.82 Long term (current) use of aspirin; Z79.899 Other long term (current) drug therapy; Z87.891 Personal history of nicotine dependence; Z79.01 Long term (current) use of anticoagulants; Z96.619 Presence of unspecified artificial shoulder joint